=== PATIENT | female | born 1950 | race Hispanic/Latino ===

== ENCOUNTER 2017-08-12 08:55 | Day surgery (SDC) | payer OTHER, MEDICARE ==
[~2017-08-12] VITALS: Ht 154.9 cm; Wt 78.7 kg
[~2017-08-12 08:55] MED LIST: SODIUM CHLORIDE 0.9% 1000ML 1,000 ML IV ONE
[2017-08-12 09:32] VITALS: BP 172/90
[2017-08-12] MEDS ORDERED: CHOL100040 PO (10:02)
[2017-08-12] MEDS ORDERED: FOLI1TAB85 PO (10:02)
[2017-08-12] MEDS ORDERED: METO25TA6 PO (10:02)
[2017-08-12] MEDS ORDERED: INDA2.5T5 PO (10:02)
[2017-08-12] MEDS ORDERED: AMLO10TA2 PO (10:02)
[2017-08-12] MEDS ORDERED: ANAS1TAB7 PO (10:02)
[2017-08-12] MEDS ORDERED: FERS325 PO (10:02)
[2017-08-12] MEDS ORDERED: FOLI1TAB15 PO (10:02)
[2017-08-12] MEDS ORDERED: LEVO50TA11 PO (10:02)
[2017-08-12] MEDS ORDERED: LINA5TAB PO (10:02)
[2017-08-12] MEDS ORDERED: OMEP40CA37 PO (10:02)
[2017-08-12] MEDS ORDERED: PRAV20TA4 PO (10:02)
== END 2017-08-12 11:50 | disposition home or self-care (01) ==
LOC: DAH 08:55 → ENDO 08:55
PROVIDERS: ATTEND Internal Medicine Gastroenterology
DX: D12.2 Benign neoplasm of ascending colon (principal); D12.3 Benign neoplasm of transverse colon; K64.0 First degree hemorrhoids; K29.50 Unspecified chronic gastritis without bleeding; D50.9 Iron deficiency anemia, unspecified; Q43.8 Other specified congenital malformations of intestine; E78.5 Hyperlipidemia, unspecified; I10 Essential (primary) hypertension; E03.9 Hypothyroidism, unspecified; D64.9 Anemia, unspecified; N18.6 End stage renal disease; E11.22 Type 2 diabetes mellitus with diabetic chronic kidney disease; I12.0 Hypertensive chronic kidney disease with stage 5 chronic kidney disease or end stage renal disease; K44.9 Diaphragmatic hernia without obstruction or gangrene; K22.8 Other specified diseases of esophagus; Z79.899 Other long term (current) drug therapy
CPT/HCPCS: 43239; 45380; 82948 ×2; 88305 ×2; 88312; A4606; J7030

== ENCOUNTER → 2021-11-13 | Outpatient (CLI) | payer OTHER ==
[~2021-11-13] MED LIST changes: +AMLO-258 PO; +ANAS1TAB7 PO; +CHOL100040 PO; +FOLI1TAB15 PO; +FOLI1TAB85 PO; +LEVO50TA11 PO; +LINA5TAB PO; +METO25TA6 PO; +OMEP40CA21 PO; +PRAV20TA4 PO; -SODIUM CHLORIDE 0.9% 1000ML 1,000 ML IV ONE
== END | disposition home or self-care (01) ==
LOC: OIH 13:10
PROVIDERS: ATTEND Internal Medicine
DX: I35.1 Nonrheumatic aortic (valve) insufficiency (principal); I11.9 Hypertensive heart disease without heart failure; R94.31 Abnormal electrocardiogram [ECG] [EKG]; E78.5 Hyperlipidemia, unspecified
CPT/HCPCS: 93306

== ENCOUNTER 2024-05-13 07:50 | Day surgery (SDC) | payer OTHER, MEDICARE ==
[2024-05-11 12:10] VITALS: BP 164/74; PULSE 68; RESP 18; TEMP 97
[2024-05-11 12:15] LABS: BASOPHILS # (AUTO) 0.05 K/uL (0.00-0.20); BASOPHILS % (AUTO) 0.9 % (0.0-5.0); EOSINOPHILS # (AUTO) 0.19 K/uL (0.00-0.70); EOSINOPHILS % (AUTO) 3.2 % (0.0-8.0); HEMATOCRIT 35.6 % (36-48); IMMATURE GRANULOCYTE ABSOLUTE 0.03 K/uL (0-1); LYMPHOCYTES # (AUTO) 1.3 K/uL (1.0-4.8); LYMPHOCYTES % (AUTO) 21.6 % (21.0-51.0); MEAN CORPUSCULAR HEMOGLOBIN 32.1 pg (27.0-33.0); MEAN CORPUSCULAR VOLUME 100.3 fL (79-99); MONOCYTES # (AUTO) 0.4 K/uL (0.1-1.0); MONOCYTES % (AUTO) 6.6 % (3.0-13.0); NEUTROPHILS % (AUTO) 67.2 % (40.0-77.0); PLATELET COUNT (AUTO) 165 K/uL (130-400); RED BLOOD CELL COUNT(AUTO) 3.55 MIL/uL (4.00-5.50); RED CELL DISTRIBUTION WIDTH 14.1 % (11.0-15.5); WHITE BLOOD COUNT (AUTO) 5.9 K/uL (4.8-10.8)
[2024-05-11 12:31] LABS: INR 1.03 (0.85-1.15); PROTHROMBIN TIME 10.9 SEC (9.6-11.6)
[2024-05-11 12:32] LABS: PARTIAL THROMBOPLASTIN TIME 28.8 SEC (26.3-35.5)
[2024-05-11 12:36] LABS: ALBUMIN 3.3 g/dL (3.5-5.0); BILIRUBIN,TOTAL 0.3 mg/dL (0.2-1.0); CREATININE 5.5 mg/dL (0.5-1.0); POTASSIUM 4.3 mmol/L (3.5-5.1); TOTAL PROTEIN, SERUM 7.6 g/dL (6.0-8.3)
--- NOTE | 2024-05-11 14:36 | EKG ---
[facility] Test Date: 2024-05-11 Test Time: 11:53:36 Pat Name: AWILDA JOHNSON Department: [facility] Room: Gender: F 3Rd Pressman: [id number] : 1950 Requested By: SAWYER HAYES Order Number: [id number] Reading MD: Valentin Mack Measurements Intervals [place] Rate: 65 P: 16 VA: 171 QRS: -20 QRSD: 106 T: 112 QT: 493 QTc: 513 Interpretive Statements Sinus rhythm Electronically Signed On 05-11-2024 16:03:40 CDT by Valentin Mack Please click the below link to view image of tracing.
--- NOTE | 2024-05-12 13:46 | NUR ---
RE: EKG REPORTED EKG RESULTS TO DR GARCIA, NO NEW ORDERS RECEIVED.
[2024-05-13] VITALS (16 sets, daily range): BP systolic 145–177; BP diastolic 43–70; PULSE 48–58; RESP 12–19; TEMP 97.3–97.7
[~2024-05-13] VITALS: Ht 149.9 cm; Wt 82.1 kg
[~2024-05-13 07:50] MED LIST changes: +0.9%NACL 1000ML 1,000 ML IV ONE; -AMLO-258 PO; +ATOR10 PO; -FOLI1TAB85 PO; -LEVO50TA11 PO; +LEVO88TA7 PO; -OMEP40CA21 PO; +PIOG30TA70 PO; -PRAV20TA4 PO; +SEVE800T27 PO; +ceFAZolin SODIUM 2 GM VIAL ONE
[2024-05-13 08:37] LABS: CREATININE 4.4 mg/dL (0.5-1.0); POTASSIUM 4.3 mmol/L (3.5-5.1)
[2024-05-13] MEDS ORDERED: HEParin-NS 1,000 UNIT/500 ML 500 ML IV ONE (11:09)
[2024-05-13] MEDS ORDERED: BUPIvacaine/PF 0.25% 30ML VIAL IJ ONE (11:27)
[2024-05-13] MEDS ORDERED: acetaMINOPHEN 100 ML ONE (12:21)
[2024-05-13] MEDS ORDERED: FAMOTIDINE 20MG VIAL IV ONE (12:22)
[2024-05-13] MEDS ORDERED: rocuRONium bROMide 10MG/1ML 5ML VL ONE (12:28)
[2024-05-13] MEDS ORDERED: proPOFol 10 MG/ML 20ML VIAL IV ONE (12:28)
[2024-05-13] MEDS ORDERED: LIDOCAINE PF 100MG/5ML (2%) SYRINGE 5ML ONE (12:28)
[2024-05-13] MEDS ORDERED: FENTanyl CITRate PF 50 MCG/1 ML 2ML VIAL ONE (12:29)
[2024-05-13] MEDS ORDERED: ondanSETRON 4MG INJ ONE (12:46)
[2024-05-13] MEDS ORDERED: dexaMETHasone SOD PHOSPHATE 10MG/ML 1ML VIAL ONE (12:46)
[2024-05-13] MEDS: ceFAZolin SODIUM 2 GM VIAL IVPB ONE (12:50)
[2024-05-13] MEDS ORDERED: HEParin 10,000 UNIT/10ML (1,000 UNIT/ML) VIAL ONE (14:20)
[2024-05-13] MEDS ORDERED: PROTamine SULFate 10 MG/ML 5 ML VIAL ONE (14:20)
[2024-05-13] MEDS ORDERED: NEOSTIGMINE METHYLSULFATE 1MG/ML IV ONE (14:22)
[2024-05-13] MEDS ORDERED: GLYCOPYRROLATE 0.2 MG/ML 5 ML VIAL ONE (14:22)
[2024-05-13] MEDS: ondanSETRON 4MG INJ ONE (15:20)
[2024-05-13] MEDS ORDERED: hydrALAZine 20MG/ML VIAL ONE (15:34)
--- NOTE | 2024-05-13 16:22 | OP ---
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 Once general endotracheal anesthesia is achieved patient's left upper extremity is prepped and draped in sterile fashion. I then proceeded to create a transverse incision over top of the antecubital fossa at the level of the arteriovenous anastomosis and proceeded to dissect around the proximal portion of the fistula just distal to the anastomosis and obtained proximal control. I then proceeded to create a transverse incision with a 15 blade at the upper arm at the distal fistula past the aneurysms. Proceeded to dissect through the skin and subcutaneous tissue and obtain distal control. We then proceeded to give heparin 5000 by anesthesia. Once we had proximal and distal control I then proceeded to use the [place] 35 vascular load to divide the fistula proximally and distally. I then created a longitudinal incision over top of the aneurysms and then proceeded to use Bovie cautery to excise the aneurysm completely clipping it every branch from any collaterals that we identified. We then proceeded to obtain hemostasis at the surgical bed. I then proceeded to close his large incision where the aneurysm used to lay using 3-0 Vicryl running fashion. And leaving just the 2 incisions where we had exposure of the inflow and the outflow. I then proceeded to use a curved C tunneler to tunnel from the proximal to the distal incision laterally from our previous surgical bed and then through here proceeded to tunnel and 8 mm straight graft making sure that the dotted line stayed up. I then proceeded to excise the staple lines. And created into an anastomosis on the arterial side and to end with 6-0 Prolene and on the venous side as well and to end with 6-0 Prolene as well. Once both anastomosis were created we then confirmed that there was a good thrill throughout the graft. No bleeding was seen. All incisions were closed in 2 layers. With 3-0 Vicryl and then 4-0 Monocryl. The incision at the antecubital fossa on the upper arm we applied Dermabond over top. In the longitudinal incision over top of where the aneurysms used to be we applied a Prevena dressing over top. Patient tolerated the procedure well all counts were correct x2 at the end of the procedure. SAWYER HAYES MD May 13, 2024 16:22
== END 2024-05-13 16:50 ==
LOC: DAH 07:50
PROVIDERS: ATTEND Student in an Organized Health Care Education/Training Program
DX: I12.0 Hypertensive chronic kidney disease with stage 5 chronic kidney disease or end stage renal disease (principal); N18.6 End stage renal disease; E11.22 Type 2 diabetes mellitus with diabetic chronic kidney disease; E66.9 Obesity, unspecified; I72.1 Aneurysm of artery of upper extremity; Z87.898 Personal history of other specified conditions; Z86.2 Personal history of diseases of the blood and blood-forming organs and certain disorders involving the immune mechanism; Z98.890 Other specified postprocedural states; Z68.43 Body mass index [BMI] 50.0-59.9, adult
CPT/HCPCS: 80053; 85025; 85610; 85730; 86850; 86900; 86901; 36415 ×2; 93005; 36832; 80048; 82948 ×2; 88304; A4223 ×2; A4600; A6260; A4663; J7030 ×2; C1768; J3490 ×3; J3010; J1100; J2003; J2720; J0360; J1644 ×3; J2704; J2405 ×2; J2710; J0690 ×2; A9272 ×2; A4649 ×3; C1713 ×3; A4930; A4215; A4213; A4222; A4221; A4216; J0665